=== PATIENT | male | born 2000 ===

== ENCOUNTER → 2019-02-15 | Outpatient (CLI) | payer OTHER ==
[2019-02-19 07:07] LABS: HSV-1 DNA Positive (Negative); HSV-2 DNA Negative (Negative)
== END | disposition home or self-care (01) ==
LOC: LAB SHORT 19:27 → LAB 19:27
PROVIDERS: Physician Assistant Medical
DX: L08.9 Local infection of the skin and subcutaneous tissue, unspecified (principal); L02.426 Furuncle of left lower limb; L02.32 Furuncle of buttock; L02.222 Furuncle of back [any part, except buttock and flank]
CPT/HCPCS: 87070; 87077; 87147; 87186; 87205; 87529